=== PATIENT | female | born 1995 | race American Indian/Alaskan Native ===

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

== ENCOUNTER 2018-09-13 22:04 | Emergency (ER) | payer SELFPAY ==
[2018-09-13 23:25] VITALS: BP 117/78
== END 2018-09-14 00:50 | disposition left against medical advice (07) ==
LOC: ED 22:04
DX: O20.0 Threatened abortion (principal); Z53.21 Procedure and treatment not carried out due to patient leaving prior to being seen by health care provider

== ENCOUNTER 2020-01-23 05:31 | Emergency (ER) | payer SELFPAY ==
[2020-01-23 05:40] VITALS: BP 128/88
[2020-01-23] MEDS ORDERED: HYDROcodone/ACETAMINOPHEN 10-325MG TAB PO ONE (07:17)
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
== END 2020-01-23 08:24 | disposition home or self-care (01) ==
LOC: ED 05:31
DX: S66.912A Strain of unspecified muscle, fascia and tendon at wrist and hand level, left hand, initial encounter (principal); F17.200 Nicotine dependence, unspecified, uncomplicated; F41.9 Anxiety disorder, unspecified; F31.9 Bipolar disorder, unspecified; Z79.899 Other long term (current) drug therapy; W50.2XXA Accidental twist by another person, initial encounter; Y93.89 Activity, other specified; Y92.89 Other specified places as the place of occurrence of the external cause; Y99.8 Other external cause status
CPT/HCPCS: 99283

== ENCOUNTER 2021-09-07 21:27 | Emergency (ER) | payer SELFPAY ==
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
[2021-09-07] MEDS ORDERED: KETOROLAC 30 MG/1 ML INJ IM ONE (21:50)
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
[2021-09-07 23:52] VITALS: BP 125/87
== END 2021-09-07 23:52 | disposition home or self-care (01) ==
LOC: ED 21:27
DX: S02.69XA Fracture of mandible of other specified site, initial encounter for closed fracture (principal); F41.9 Anxiety disorder, unspecified; F31.9 Bipolar disorder, unspecified; F17.200 Nicotine dependence, unspecified, uncomplicated; Z79.899 Other long term (current) drug therapy; Y04.8XXA Assault by other bodily force, initial encounter; Y93.89 Activity, other specified; Y92.89 Other specified places as the place of occurrence of the external cause; Y99.8 Other external cause status
CPT/HCPCS: 70486; 96372; 99283; J1885